=== PATIENT | male | born 1960 | race Caucasian/White ===

== ENCOUNTER 2016-10-22 01:16 | Emergency (ER) | payer MEDICAID ==
[~2016-10-22] VITALS: Ht 172.7 cm; Wt 72.7 kg
[~2016-10-22 01:16] MED LIST: NOCURR
[2016-10-22] MEDS ORDERED: BACITRACIN 0.9 GM PACKET OINTMENT TP ONE (03:45)
[2016-10-22] MEDS ORDERED: BUPIVACAINE HCL/PF 0.25% 10 ML VIAL INJ ONE (03:45)
[2016-10-22] MEDS ORDERED: IBUPROFEN 600 MG TABLET PO ONE (03:45)
[2016-10-22] MEDS ORDERED: HYDROCODONE/ACETAMINOPHEN 5-325 MG TABLET PO ONE (04:30)
[2016-10-22 05:36] VITALS: BP 126/74
== END 2016-10-22 05:45 | disposition home or self-care (01) ==
LOC: EMS 01:19
DX: S42.291A Other displaced fracture of upper end of right humerus, initial encounter for closed fracture (principal); S51.011A Laceration without foreign body of right elbow, initial encounter; F10.20 Alcohol dependence, uncomplicated; Y04.2XXA Assault by strike against or bumped into by another person, initial encounter; Y93.89 Activity, other specified; Y92.89 Other specified places as the place of occurrence of the external cause; Y99.8 Other external cause status
CPT/HCPCS: 12002; 29105; 71010; 73060; 73080; 99284; J3490